=== PATIENT | female | born 1965 | race Caucasian/White ===

== ENCOUNTER 2018-12-19 09:34 | Inpatient (IN) | payer BC ==
[~2018-12-19] VITALS: Ht 154.9 cm; Wt 86.4 kg
[2018-12-19] MEDS ORDERED: enoxaparin 100mg/ml syringe SUBCUT ONE (10:55)
[2018-12-19 11:16] LABS: BASOPHILS % (AUTO) 0.4 % (0-1); EOSINOPHILS # (AUTO) 0.6 X10'3 (0-0.9); EOSINOPHILS % (AUTO) 7.5 % (0-6); HEMATOCRIT 34.4 % (35.0-45.0); HEMOGLOBIN 11.4 g/dl (12.0-16.0); LYMPHOCYTES # (AUTO) 1.4 X10'3 (1.1-4.8); LYMPHOCYTES % (AUTO) 16.8 % (21-51); MEAN CORPUSCULAR HEMOGLOBIN 29.6 PG (27.0-31.0); MEAN CORPUSCULAR HGB CONC 33.2 g/dL (33.0-36.5); MEAN CORPUSCULAR VOLUME 89.3 FL (78-98); MEAN PLATELET VOLUME 8.2 FL (7.4-10.4); MONOCYTES # (AUTO) 0.6 X10'3 (0-0.9); MONOCYTES % (AUTO) 7.7 % (2-12); NEUTROPHILS # (AUTO) 5.4 X10'3 (1.8-7.7); NEUTROPHILS % (AUTO) 67.6 % (42-75); PLATELET COUNT 275 X10'3 (140-440); RED BLOOD COUNT 3.85 X10'6 (4.20-5.60); RED CELL DISTRIBUTION WIDTH 14.3 % (11.5-14.5)
[2018-12-19 11:30] LABS: ALANINE AMINOTRANSFERASE 56 U/L (12-78); ALBUMIN/GLOBULIN RATIO 0.8 (1.1-1.5); ALKALINE PHOSPHATASE 122 IU/L (46-116); ANION GAP 6 (8-16); ASPARTATE AMINO TRANSFERASE 37 U/L (10-37); BILIRUBIN,TOTAL 0.4 MG/DL (0.1-1.0); BLOOD UREA NITROGEN 10 MG/DL (7-18); BUN/CREATININE RATIO 10.1 (6.6-38.0); CALCIUM 8.8 MG/DL (8.5-10.1); CHLORIDE 105 MMOL/L (99-107); CREATININE 0.99 MG/DL (0.40-0.90); GLUCOSE 87 MG/DL (70-104); POTASSIUM 4.2 MMOL/L (3.5-5.1); SODIUM 140 MMOL/L (135-145); TOTAL PROTEIN 6.9 G/DL (6.4-8.2); eGFR 58 ML/MIN
[2018-12-19] MEDS ORDERED: iohexol 350MG/ML 100ml bottle IV ONE (12:35)
[2018-12-19] MEDS ORDERED: normal saline 1000ml 1,000 ML IV ONE ×2 (13:30→14:59)
[2018-12-19] MEDS ORDERED: iohexol 300 MG/1 ML 50ml polymer ONE (13:52)
[2018-12-19] MEDS ORDERED: morphine 4 MG/ML inj SYRINge IV ONE (15:00)
[2018-12-19] MEDS ORDERED: ampicill/sulbac 1.5gm/NS 100ml 100 ML IV SCH ×2 (15:25→20:00)
[2018-12-19] MEDS ORDERED: ampicill/sulbac 1.5gm/NS 100ml 100 ML IV ONE (15:30)
[2018-12-19 15:42] LABS: CLARITY,URINE CLEAR (Clear); COLOR,URINE YELLOW (Yellow); GLUCOSE, URINE NEGATIVE (Neg); KETONES,URINE NEGATIVE (Neg); LEUKOCYTE ESTERASE ,URINE SMALL (Neg); NITRITES, URINE NEGATIVE (Neg); OCCULT BLOOD,URINE SMALL (Neg); PH,URINE 7.5 (4.8-8.0); PROTEIN,URINE NEGATIVE (Neg); UROBILINOGEN,URINE 0.2 E.U/dL (0.2-1.0)
[2018-12-19 15:44] LABS: UA COLLECTION TYPE CLN CATCH MIDSTREAM
[2018-12-19 15:55] LABS: CREATINE KINASE 759 U/L (26-192)
[2018-12-19 15:56] LABS: BACTERIA,URINE 1+ /HPF (Neg); MUCUS STRANDS NONE SEEN /LPF (Neg); SQUAMOUS EPITHELIAL CELL,UR FEW /LPF (FEW); WBC,URINE 20-30 /HPF (0-4)
[2018-12-19] MEDS: normal saline 1000ml 1,000 ML IV SCH (17:13)
[2018-12-19] MEDS ORDERED: ondansetron/PF 4mg/2ml inj IV PRN (17:15)
[2018-12-19] MEDS ORDERED: magnesium hydroxide 30ml (MOM) UD suspension PO PRN (17:15)
[2018-12-19] MEDS ORDERED: acetaminophen 325mg tablet PO PRN (17:15)
[2018-12-19] MEDS ORDERED: potassium CL 10mEq/100ml bag 100 ML IV PRN ×2 (17:15)
[2018-12-19] MEDS ORDERED: mag hydrox/Alum hydrox/simeth 30ml oral suspension PO PRN (17:15)
[2018-12-19] MEDS ORDERED: magnesium Cl slow-release 64mg tablet PO PRN (17:15)
[2018-12-19] MEDS ORDERED: magnesium 2GM in 50ml NS 50 ML IV PRN (17:15)
[2018-12-19] MEDS ORDERED: morphine 2 MG/ML inj. syringe IV PRN ×2 (17:15)
[2018-12-19] MEDS ORDERED: potassium Cl 20 mEq SR tablet PO PRN ×2 (17:15)
[2018-12-19] MEDS ORDERED: magnesium 4gm in 100ml NS 100 ML IV PRN (17:15)
[2018-12-19] MEDS ORDERED: HYDROcodone/acetaminophen 10/325mg tab PO PRN (17:15)
[2018-12-19] MEDS: K and/or MAG REPLACEMENT MC SCH (17:15)
[2018-12-19] MEDS ORDERED: DOCU250C34 PO (18:55)
[2018-12-19] MEDS ORDERED: LEVO100T PO (18:55)
[2018-12-19] MEDS ORDERED: IBUP-1985 PO (18:55)
[2018-12-19] MEDS ORDERED: ASPI-1130 PO (18:55)
[2018-12-19] MEDS ORDERED: TRAM50TA2 PO (18:57)
[2018-12-19] MEDS ORDERED: ONDA8TAB13 PO (19:16)
[2018-12-19] MEDS ORDERED: OXYC-658 PO (19:16)
--- NOTE | 2018-12-19 20:31 | NUR ---
PT HAS IOPA, 4012B. STABLE VS. REPORTS 7 OUT OF 10 PAIN, THAT IS EXACERBATED WHEN GETTING UP OUT OF BED.
--- NOTE | 2018-12-19 20:39 | NUR ---
I have received report from Augusto BROOKS and had the opportunity to ask questions and assume patient care.
[2018-12-19 20:45] VITALS: BP 118/62
[2018-12-19] MEDS: piperacillin/tazobactam inj. 3.375 GM in NS 50ml IV SCH (21:30)
[2018-12-19] MEDS: heparin, porcine 5000 units/ml vial SQ SCH (21:31)
[2018-12-19] MEDS: HYDROcodone/acetaminophen 5mg/325mg tablet PO PRN (23:33)
[2018-12-20] MEDS ORDERED: ondansetron 4mg rapidly disintigrating tab PO PRN (00:15)
[2018-12-20] MEDS: piperacillin/tazobactam inj. 3.375 GM in NS 50ml IV SCH ×3 (04:01→19:38)
--- NOTE | 2018-12-20 06:20 | NUR ---
Problems reprioritized. Patient report given, questions answered & plan of care reviewed with Lisa BROOKS and Lucila BROOKS.
[2018-12-20 06:42] LABS: BASOPHILS % (AUTO) 0.6 % (0-1); EOSINOPHILS # (AUTO) 0.7 X10'3 (0-0.9); EOSINOPHILS % (AUTO) 10.1 % (0-6); HEMATOCRIT 31.5 % (35.0-45.0); HEMOGLOBIN 10.4 g/dl (12.0-16.0); LYMPHOCYTES # (AUTO) 1.7 X10'3 (1.1-4.8); LYMPHOCYTES % (AUTO) 24.8 % (21-51); MEAN CORPUSCULAR HEMOGLOBIN 29.5 PG (27.0-31.0); MEAN CORPUSCULAR HGB CONC 32.9 g/dL (33.0-36.5); MEAN CORPUSCULAR VOLUME 89.9 FL (78-98); MEAN PLATELET VOLUME 8.4 FL (7.4-10.4); MONOCYTES # (AUTO) 0.5 X10'3 (0-0.9); MONOCYTES % (AUTO) 7.7 % (2-12); NEUTROPHILS % (AUTO) 56.8 % (42-75); PLATELET COUNT 274 X10'3 (140-440); RED CELL DISTRIBUTION WIDTH 14.3 % (11.5-14.5); WHITE BLOOD COUNT 7.1 X10'3 (4.5-11.0)
[2018-12-20 06:43] VITALS: BP 117/66
--- NOTE | 2018-12-20 06:45 | NUR ---
Patient in room [facility]THO 4012. I have received report from Cassie BROOKS and had the opportunity to ask questions and assume patient care.
--- NOTE | 2018-12-20 06:47 | NUR ---
Patient in room [facility]THO 4012. I have received report from Cassie BROOKS and had the opportunity to ask questions and assume patient care.
[2018-12-20 07:12] LABS: ALANINE AMINOTRANSFERASE 56 U/L (12-78); ALBUMIN 2.6 G/DL (3.4-5.0); ALBUMIN/GLOBULIN RATIO 0.7 (1.1-1.5); ALKALINE PHOSPHATASE 113 IU/L (46-116); ANION GAP 9 (8-16); ASPARTATE AMINO TRANSFERASE 46 U/L (10-37); BILIRUBIN,TOTAL 0.3 MG/DL (0.1-1.0); BLOOD UREA NITROGEN 9 MG/DL (7-18); BUN/CREATININE RATIO 7.7 (6.6-38.0); CALCIUM 8.3 MG/DL (8.5-10.1); CHLORIDE 105 MMOL/L (99-107); CREATININE 1.17 MG/DL (0.40-0.90); GLUCOSE 91 MG/DL (70-104); POTASSIUM 3.9 MMOL/L (3.5-5.1); SODIUM 141 MMOL/L (135-145); TOTAL PROTEIN 6.1 G/DL (6.4-8.2); eGFR 48 ML/MIN
[2018-12-20 07:15] LABS: CREATINE KINASE 462 U/L (26-192)
[2018-12-20] MEDS: HYDROcodone/acetaminophen 5mg/325mg tablet PO PRN (07:50)
[2018-12-20] MEDS: aspirin 81mg tablet.DR PO SCH ×2 (07:50→19:42)
[2018-12-20] MEDS: levoTHYROXINE 100mcg tablet PO SCH (07:50)
[2018-12-20] MEDS: heparin, porcine 5000 units/ml vial SQ SCH ×2 (07:51→19:42)
[2018-12-20] MEDS: K and/or MAG REPLACEMENT MC SCH (08:00)
[2018-12-20] MEDS: normal saline 1000ml 1,000 ML IV SCH ×3 (09:13→17:13)
[2018-12-20] MEDS: traMADol 50MG tablet PO PRN (09:55)
[2018-12-20 11:00] VITALS: BP 98/55
[2018-12-20] MEDS: docusate sod 250mg capsule PO PRN (11:41)
[2018-12-20] MEDS: acetaminophen 325mg tablet PO PRN ×2 (14:34→22:45)
--- NOTE | 2018-12-20 18:16 | NUR ---
dressing changed to left hip per patients request following hip surgery 12/13 in [facility]. Wound well approx steristrips in place . island dressing replaced. up to BR using FWW, indep
--- NOTE | 2018-12-20 18:29 | NUR ---
Problems reprioritized. Patient report given, questions answered & plan of care reviewed with Cassie BROOKS.
[2018-12-20 19:41] VITALS: BP 130/73
[2018-12-20] MEDS: lactobacillus rhamnosus 10,000 MMU CELLS/CAPSULE PO SCH (19:42)
[2018-12-20 22:00] VITALS: BP 113/63
--- NOTE | 2018-12-20 23:45 | NUR ---
Problems reprioritized. Patient report given, questions answered & plan of care reviewed with Gwendolyn Dwyer.
[2018-12-21] MEDS: normal saline 1000ml 1,000 ML IV SCH ×2 (02:20→09:47)
[2018-12-21] MEDS: traMADol 50MG tablet PO PRN (02:52)
[2018-12-21] MEDS: docusate sod 250mg capsule PO PRN (02:52)
[2018-12-21] MEDS: piperacillin/tazobactam inj. 3.375 GM in NS 50ml IV SCH ×2 (03:19→12:22)
[2018-12-21 05:44] LABS: BASOPHILS % (AUTO) 0.4 % (0-1); EOSINOPHILS # (AUTO) 0.9 X10'3 (0-0.9); EOSINOPHILS % (AUTO) 11.8 % (0-6); HEMATOCRIT 33.1 % (35.0-45.0); HEMOGLOBIN 11.3 g/dl (12.0-16.0); LYMPHOCYTES # (AUTO) 1.8 X10'3 (1.1-4.8); LYMPHOCYTES % (AUTO) 24.5 % (21-51); MEAN CORPUSCULAR HEMOGLOBIN 30.3 PG (27.0-31.0); MEAN CORPUSCULAR HGB CONC 34.2 g/dL (33.0-36.5); MEAN CORPUSCULAR VOLUME 88.4 FL (78-98); MEAN PLATELET VOLUME 8.2 FL (7.4-10.4); MONOCYTES # (AUTO) 0.5 X10'3 (0-0.9); NEUTROPHILS # (AUTO) 4.1 X10'3 (1.8-7.7); NEUTROPHILS % (AUTO) 56.3 % (42-75); PLATELET COUNT 307 X10'3 (140-440); RED BLOOD COUNT 3.74 X10'6 (4.20-5.60); RED CELL DISTRIBUTION WIDTH 14.1 % (11.5-14.5); WHITE BLOOD COUNT 7.3 X10'3 (4.5-11.0)
[2018-12-21 06:12] LABS: ANION GAP 9 (8-16); BLOOD UREA NITROGEN 9 MG/DL (7-18); BUN/CREATININE RATIO 8.8 (6.6-38.0); CALCIUM 9.1 MG/DL (8.5-10.1); CHLORIDE 106 MMOL/L (99-107); CREATINE KINASE 297 U/L (26-192); CREATININE 1.02 MG/DL (0.40-0.90); GLUCOSE 98 MG/DL (70-104); MAGNESIUM 2.3 MG/DL (1.5-2.4); POTASSIUM 3.9 MMOL/L (3.5-5.1); SODIUM 142 MMOL/L (135-145); TOTAL CARBON DIOXIDE 26.6 MMOL/L (24-32); eGFR 56 ML/MIN
--- NOTE | 2018-12-21 06:30 | NUR ---
Report given, questions answered and plan of care reviewed with TODD Rose.
[2018-12-21 06:42] VITALS: BP 115/68
[2018-12-21] MEDS: aspirin 81mg tablet.DR PO SCH (07:38)
[2018-12-21] MEDS: levoTHYROXINE 100mcg tablet PO SCH (07:38)
[2018-12-21] MEDS: lactobacillus rhamnosus 10,000 MMU CELLS/CAPSULE PO SCH (07:38)
[2018-12-21] MEDS: K and/or MAG REPLACEMENT MC SCH (07:39)
[2018-12-21] MEDS: heparin, porcine 5000 units/ml vial SQ SCH (07:59)
[2018-12-21] MEDS ORDERED: AMOX-422 PO (12:00)
[2018-12-21 12:06] VITALS: BP 135/73
== END 2018-12-21 15:15 | disposition home or self-care (01) | DRG 948 ==
LOC: ER 09:35 → ED HOLD 18:32 → EDBEDREQ 20:14 → ORTHO 4S 20:45 → OBSVTOIN 12-20 19:47
PROVIDERS: ADMIT Family Medicine; ATTEND Hospitalist
DX: G89.18 Other acute postprocedural pain (principal); M62.82 Rhabdomyolysis; E03.9 Hypothyroidism, unspecified; G89.4 Chronic pain syndrome; K21.9 Gastro-esophageal reflux disease without esophagitis; Z79.890 Hormone replacement therapy; Z80.1 Family history of malignant neoplasm of trachea, bronchus and lung; Z98.891 History of uterine scar from previous surgery; Z96.643 Presence of artificial hip joint, bilateral; Z90.710 Acquired absence of both cervix and uterus; Z82.49 Family history of ischemic heart disease and other diseases of the circulatory system; Z80.8 Family history of malignant neoplasm of other organs or systems; Z88.2 Allergy status to sulfonamides
CPT/HCPCS: 36415; 71275; 73701; 74177; 80048; 80053; 81001; 82550; 83605; 83735; 84145; 84443; 85025; 85610; 87040; 87077; 87081; 87088; 87186; 93971; 97110; 97116; 97161; 97530; G0378; J0295; J1644; J1650; J2270; J2543; J7030; Q9967

== ENCOUNTER 2018-12-22 13:07 | Inpatient (IN) | payer BC ==
[~2018-12-22] VITALS: Ht 304.8 cm; Wt 81.0 kg
[~2018-12-22 13:07] MED LIST: AMOX-422 PO; ASPI-1130 PO; DOCU250C34 PO; IBUP-1985 PO; LEVO100T PO; ONDA8TAB13 PO; OXYC-658 PO; TRAM50TA2 PO
--- NOTE | 2018-12-22 15:29 | NUR ---
Page sent to Dr. Thompson PAGER ID: [phone] MESSAGE: [id number] Anaid Castillo has just arrived CAMPOS Galvez RN, Neuro
[2018-12-22 16:10] VITALS: BP 146/83
[2018-12-22] MEDS ORDERED: magnesium 2GM in 50ml NS 50 ML IV PRN (16:30)
[2018-12-22] MEDS ORDERED: acetaminophen 325mg tablet PO PRN ×2 (16:30)
[2018-12-22] MEDS ORDERED: magnesium Cl slow-release 64mg tablet PO PRN (16:30)
[2018-12-22] MEDS ORDERED: magnesium 4gm in 100ml NS 100 ML IV PRN (16:30)
[2018-12-22] MEDS ORDERED: ibuprofen tablet 400 MG TABLET PO PRN (16:30)
[2018-12-22] MEDS ORDERED: potassium CL 10mEq/100ml bag 100 ML IV PRN ×2 (16:30)
[2018-12-22] MEDS ORDERED: magnesium hydroxide 30ml (MOM) UD suspension PO PRN (16:30)
[2018-12-22] MEDS ORDERED: ondansetron/PF 4mg/2ml inj IV PRN (16:30)
[2018-12-22] MEDS ORDERED: mag hydrox/Alum hydrox/simeth 30ml oral suspension PO PRN (16:30)
[2018-12-22] MEDS ORDERED: potassium Cl 20 mEq SR tablet PO PRN ×2 (16:30)
[2018-12-22] MEDS: MEROPENEM 1GM/NS 50ML IVPB 50 ML IV SCH (17:05)
[2018-12-22] MEDS ORDERED: ibuprofen 200mg tablet PO PRN (17:30)
[2018-12-22 18:00] VITALS: BP 121/68
--- NOTE | 2018-12-22 18:31 | NUR ---
Page sent Dr Dr. Dc PAGER ID: [phone] MESSAGE: [id number] [facility] rec completed. Also, please input a diet order. Thank you. Leonor
--- NOTE | 2018-12-22 18:43 | NUR ---
Problems reprioritized. Patient report given, questions answered & plan of care reviewed with Poncho.
--- NOTE | 2018-12-22 20:00 | NUR ---
ordered pt dinner. eating at this time.
[2018-12-22] MEDS ORDERED: traMADol 50MG tablet PO PRN (20:15)
[2018-12-22] MEDS ORDERED: docusate sod 250mg capsule PO PRN (20:15)
[2018-12-22] MEDS ORDERED: ondansetron 4mg rapidly disintigrating tab PO PRN (20:15)
[2018-12-22] MEDS: lactobacillus rhamnosus 10,000 MMU CELLS/CAPSULE PO SCH (21:36)
[2018-12-22 22:00] VITALS: BP 121/62
--- NOTE | 2018-12-22 22:00 | NUR ---
bruising to mid thomson and medial malleolus. redness noted dorsal to incision - not able to transcribe it as there are not any notable borders. betadine and island dressing applied. pain to left groin for patient. noted xrays taken but not read yet.
[2018-12-23] MEDS: MEROPENEM 1GM/NS 50ML IVPB 50 ML IV SCH ×3 (00:41→16:35)
[2018-12-23 06:00] VITALS: BP 103/59
--- NOTE | 2018-12-23 06:07 | NUR ---
reported to days. lab drawing AM labs. pt ambulating w/o difficulty.
--- NOTE | 2018-12-23 06:32 | NUR ---
reported to days. noted pt on abx and awaiting results from xrays
[2018-12-23 06:36] LABS: BASOPHILS # (AUTO) 0.1 X10'3 (0-0.2); BASOPHILS % (AUTO) 0.9 % (0-1); EOSINOPHILS # (AUTO) 1.3 X10'3 (0-0.9); EOSINOPHILS % (AUTO) 13.8 % (0-6); HEMOGLOBIN 12.9 g/dl (12.0-16.0); LYMPHOCYTES # (AUTO) 1.9 X10'3 (1.1-4.8); LYMPHOCYTES % (AUTO) 20.3 % (21-51); MEAN CORPUSCULAR HGB CONC 33.9 g/dL (33.0-36.5); MEAN CORPUSCULAR VOLUME 88.6 FL (78-98); MONOCYTES # (AUTO) 0.5 X10'3 (0-0.9); MONOCYTES % (AUTO) 5.8 % (2-12); NEUTROPHILS # (AUTO) 5.6 X10'3 (1.8-7.7); NEUTROPHILS % (AUTO) 59.2 % (42-75); PLATELET COUNT 366 X10'3 (140-440); RED BLOOD COUNT 4.28 X10'6 (4.20-5.60); RED CELL DISTRIBUTION WIDTH 14.5 % (11.5-14.5); WHITE BLOOD COUNT 9.5 X10'3 (4.5-11.0)
[2018-12-23 07:12] LABS: ALBUMIN 3.5 G/DL (3.4-5.0); ANION GAP 12 (8-16); BLOOD UREA NITROGEN 14 MG/DL (7-18); BUN/CREATININE RATIO 14.6 (6.6-38.0); CALCIUM 9.4 MG/DL (8.5-10.1); CHLORIDE 104 MMOL/L (99-107); CREATININE 0.96 MG/DL (0.40-0.90); GLUCOSE 96 MG/DL (70-104); MAGNESIUM 2.2 MG/DL (1.5-2.4); POTASSIUM 4.1 MMOL/L (3.5-5.1); SODIUM 139 MMOL/L (135-145); eGFR 61 ML/MIN
[2018-12-23] MEDS ORDERED: K and/or MAG REPLACEMENT MC SCH (08:00)
[2018-12-23] MEDS ORDERED: aspirin 81mg tablet.DR PO SCH (08:00)
[2018-12-23] MEDS ORDERED: levoTHYROXINE 100mcg tablet PO SCH (08:00)
[2018-12-23] MEDS ORDERED: enoxaparin 40mg/0.4ml syringe SQ SCH (08:00)
[2018-12-23] MEDS: lactobacillus rhamnosus 10,000 MMU CELLS/CAPSULE PO SCH (08:59)
--- NOTE | 2018-12-23 09:30 | NUR ---
pt states she has continuing low pelvic pain and is experiencing frequency and "pressure" when trying to start her urine stream. Addendum: 12/23/18 at 1209 by Carla Beckford RN Amended: Links added.
[2018-12-23 10:00] VITALS: BP 111/75
[2018-12-23 13:09] LABS: CREATINE KINASE 196 U/L (26-192)
[2018-12-23 14:29] LABS: CLARITY,URINE CLEAR (Clear); COLOR,URINE YELLOW (Yellow); GLUCOSE, URINE NEGATIVE (Neg); KETONES,URINE NEGATIVE (Neg); LEUKOCYTE ESTERASE ,URINE NEGATIVE (Neg); NITRITES, URINE NEGATIVE (Neg); OCCULT BLOOD,URINE NEGATIVE (Neg); PROTEIN,URINE NEGATIVE (Neg); UROBILINOGEN,URINE 0.2 E.U/dL (0.2-1.0)
[2018-12-23 14:38] LABS: UA COLLECTION TYPE CLN CATCH MIDSTREAM
== END 2018-12-23 17:15 | disposition home or self-care (01) | DRG 690 ==
LOC: ORTHO 4S 15:02
PROVIDERS: ADMIT Hospitalist; ATTEND Internal Medicine
DX: N39.0 Urinary tract infection, site not specified (principal); Z16.24 Resistance to multiple antibiotics; Z96.643 Presence of artificial hip joint, bilateral; R82.71 Bacteriuria; E07.81 Sick-euthyroid syndrome; E03.9 Hypothyroidism, unspecified; Z79.899 Other long term (current) drug therapy; Z79.890 Hormone replacement therapy
CPT/HCPCS: 36415; 73522; 73610; 80048; 81003; 82550; 83735; 84145; 84443; 85025; 87081; G0378; J1650; J2185